=== PATIENT | female | born 1990 | race Caucasian/White ===

== ENCOUNTER 2016-08-08 22:50 | Emergency (ER) | payer OTHER ==
--- NOTE | 2016-08-08 23:27 | ED ---
Female Urogenital HPI - General Chief complaint: Vaginal Bleeding Stated complaint: /bleeding Time Seen by Provider: 08/08/16 23:12 Source: patient Mode of arrival: ambulatory Limitations: no limitations - History of Present Illness Initial comments: Patient is a 26-year-old woman who presents to be evaluated for vaginal bleeding that started approximately an hour ago. She is also having low back and pelvic cramping that she states feels "like when I'm having my period." The patient does state that her menstrual cycle is proximally a week to 10 days late. She took a home test on Wednesday and it was positive. Complaint: vaginal bleeding Onset/Timin -: hour(s) Location: suprapubic Radiation: other (Low back) Severity: mild Quality: cramping Consistency: constant Improves with: none Worsens with: none Last Menstrual Period: 06/27/16 Patient : Yes (Positive home test.) - Related Data Home Medications Medication Instructions Recorded Confirmed No Known Home Medications [No 11/12/14 08/08/16 Known Home Medications] Allergies Allergy/AdvReac Type Severity Reaction Status Date / Time No Known Allergies Allergy Verified 08/08/16 23:15 Review of Systems ROS Statement: Those systems with pertinent positive or pertinent negative responses have been documented in the HPI. ROS Other: All systems not noted in ROS Statement are negative. Constitutional: Denies: fever, chills Respiratory: Denies: cough, dyspnea Cardiovascular: Denies: chest pain, palpitations, syncope Gastrointestinal: Reports: as per HPI, abdominal pain. Denies: vomiting, diarrhea Genitourinary: Reports: abnormal menses. Denies: dysuria, hematuria, discharge , dyspareunia Musculoskeletal: Reports: as per HPI, back pain Skin: Denies: rash Neurological: Denies: headache, weakness, numbness Past Medical History Past Medical History: No Reported History History of Any Multi-Drug Resistant Organisms: None Reported Past Surgical History: Section Past Anesthesia/Blood Transfusion Reactions: Postoperative Nausea & Vomiting ( PONV) Past Psychological History: Anxiety Smoking Status: Current every day smoker Past Alcohol Use History: Occasional Past Drug Use History: None Reported - Past Family History Father History Unknown: Yes Mother Family Medical History: Cancer Additional Family Medical History / Comment(s): Cervical cancer General Exam Limitations: no limitations General appearance: alert, in no apparent distress Head exam: Present: atraumatic, normocephalic Eye exam: Present: normal appearance. Absent: scleral icterus, conjunctival injection ENT exam: Present: normal oropharynx Neck exam: Present: normal inspection Respiratory exam: Present: normal lung sounds bilaterally. Absent: respiratory distress, wheezes, rales, rhonchi, stridor Cardiovascular Exam: Present: regular rate, normal rhythm, normal heart sounds. Absent: systolic murmur, diastolic murmur, rubs, gallop GI/Abdominal exam: Present: soft. Absent: distended, tenderness, guarding, rebound, rigid, mass, hernia Extremities exam: Present: normal inspection, normal capillary refill. Absent: pedal edema, calf tenderness Back exam: Present: normal inspection. Absent: CVA tenderness (R), CVA tenderness (L) Neurological exam: Present: alert Skin exam: Present: warm, dry, intact, normal color, other (Multiple tattoos). Absent: rash Course Vital Signs 08/08/16 23:08 Temperature 98.2 F Pulse Rate 84 Respiratory 16 Rate Blood Pressure 116/78 O2 Sat by Pulse 98 Oximetry Medical Decision Making - Lab Data Lab Results 08/08/16 08/08/16 08/08/16 Range/Units 23:45 23:45 23:45 HCG, Quant mIU/mL Urine Color Yellow Urine Appearance Clear (Clear) Urine pH 6.5 (5.0-8.0) Ur Specific [place] 1.010 (1.001-1.035) Urine Protein Negative (Negative) Urine Glucose (UA) Negative (Negative) Urine Ketones Negative (Negative) Urine Blood Trace H (Negative) Urine Nitrite Negative (Negative) Urine Bilirubin Negative (Negative) Urine Urobilinogen <2.0 (<2.0) mg/dL Ur Leukocyte Esterase Negative (Negative) Urine RBC <1 (0-5) /hpf Urine WBC 1 (0-5) /hpf Ur Squamous Epith Cells 1 (0-4) /hpf Urine Mucus Rare H (None) /hpf Urine HCG, Qual Detected (Not Detectd) Blood Type O Negative Blood Type Recheck No Antibody Screen NEGATIVE 08/08/16 Range/Units 23:45 HCG, Quant 27.3 mIU/mL Urine Color Urine Appearance (Clear) Urine pH (5.0-8.0) Ur Specific [place] (1.001-1.035) Urine Protein (Negative) Urine Glucose (UA) (Negative) Urine Ketones (Negative) Urine Blood (Negative) Urine Nitrite (Negative) Urine Bilirubin (Negative) Urine Urobilinogen (<2.0) mg/dL Ur Leukocyte Esterase (Negative) Urine RBC (0-5) /hpf Urine WBC (0-5) /hpf Ur Squamous Epith Cells (0-4) /hpf Urine Mucus (None) /hpf Urine HCG, Qual (Not Detectd) Blood Type Blood Type Recheck Antibody Screen Disposition Clinical Impression: Rh negative status during , Threatened , Vaginal bleeding Disposition: HOME SELF-CARE Condition: Good Instructions: Threatened Miscarriage (ED) Referrals: None,Stated [Primary Care Provider] - 1-2 days Soco Fortune DO [Doctor of Osteopathic Medicine] - 1-2 days
[2016-08-09 00:13] LABS: Appearance,Urine Clear (Clear); Bilirubin,Urine Negative (Negative); Glucose,Urine (UA) Negative (Negative); Ketones,Urine Negative (Negative); Leukocyte Esterase,Urine Negative (Negative); Mucus,Urine Rare /hpf; Nitrite,Urine Negative (Negative); PH, Urine 6.5 (5.0-8.0); Particle Count 1213; Protein,Urine Negative (Negative); RBC,Urine <1 /hpf (0-5); Squamous Epithelial Cell,Urine 1 /hpf (0-4); UA Billing (MACRO vs. MICRO) MICRO; Urobilinogen,Urine <2.0 mg/dL (<2.0); WBC,Urine 1 /hpf (0-5)
[2016-08-09] MEDS ORDERED: Rhogam IMMUNE GLOBULIN 1,500 UNIT/1 ML IM ONE (01:21)
[2016-08-09 02:35] VITALS: BP 122/66; PULSE 78; RESP 18; TEMP 98.1
== END 2016-08-09 02:35 | disposition home or self-care (01) ==
LOC: EC 22:50
DX: O20.0 Threatened abortion (principal); Z3A.01 Less than 8 weeks gestation of pregnancy; Z67.91 Unspecified blood type, Rh negative; F17.200 Nicotine dependence, unspecified, uncomplicated
CPT/HCPCS: 36415; 86900; 86901; 86850; 81001; 81025; 84702; 99284; 96372; J2791

== ENCOUNTER → 2016-08-11 | Outpatient (CLI) | payer OTHER | LOC: LABWHC1 12:04 | PROVIDERS: ATTEND Obstetrics & Gynecology | DX: O02.1 Missed abortion (principal); Z3A.00 Weeks of gestation of pregnancy not specified | CPT/HCPCS: 36415; 84702 ==

== ENCOUNTER → 2016-08-13 | Outpatient (CLI) | payer OTHER | END | disposition home or self-care (01) | LOC: LABWHC1 10:20 | PROVIDERS: ATTEND Obstetrics & Gynecology | DX: O20.0 Threatened abortion (principal); Z3A.00 Weeks of gestation of pregnancy not specified | CPT/HCPCS: 36415; 84702 ==

== ENCOUNTER → 2016-08-15 | Outpatient (CLI) | payer OTHER | END | disposition home or self-care (01) | LOC: LABWHC1 08:47 | PROVIDERS: ATTEND Obstetrics & Gynecology | DX: O20.0 Threatened abortion (principal); Z3A.00 Weeks of gestation of pregnancy not specified | CPT/HCPCS: 36415; 84702 ==

== ENCOUNTER → 2016-08-24 | Outpatient (CLI) | payer OTHER | END | disposition home or self-care (01) | LOC: LABWHC1 10:09 | PROVIDERS: ATTEND Obstetrics & Gynecology | DX: O03.9 Complete or unspecified spontaneous abortion without complication (principal) | CPT/HCPCS: 36415; 84702 ==

== ENCOUNTER 2016-08-31 18:44 | Emergency (ER) | payer OTHER ==
[2016-08-31 19:04] VITALS: RESP 18
[2016-08-31] MEDS ORDERED: MORPHINE SULFATE 4 MG/ML SYRINGE IVP STA (19:31)
[2016-08-31] MEDS ORDERED: SODIUM CHLORIDE 0.9% 500 ML IV ONE (19:32)
--- NOTE | 2016-08-31 19:44 | ED ---
Abdominal Pain HPI - General Chief Complaint: Abdominal Pain Stated Complaint: poss miscarrage Time Seen by Provider: 08/31/16 19:22 Source: patient, RN notes reviewed Mode of arrival: ambulatory Limitations: no limitations - History of Present Illness Initial Comments: This a 26-year-old female presents emergency Department chief complaint abdominal pain. Patient states she is at the gym working out when she had pain in her abdomen after doing some leg presses. Patient states it's in her right mid abdomen and the lower aspect. Patient states that she recently was told she was having a miscarriage. She states that she seen Dr. Arenas and she's having trended down of her hCGs. Patient did receive program. Patient is A3. Patient states that she has not had any bleeding since 08/24/2016 patient states her pain is increased with movement. Denies any dysuria, hematuria, nausea, vomiting diarrhea constipation. Patient states she had a bowel movement prior to urine states did help some. - Related Data Home Medications Medication Instructions Recorded Confirmed No Known Home Medications [No 11/12/14 08/31/16 Known Home Medications] Allergies Allergy/AdvReac Type Severity Reaction Status Date / Time No Known Allergies Allergy Verified 08/31/16 19:26 Review of Systems ROS Statement: Those systems with pertinent positive or pertinent negative responses have been documented in the HPI. ROS Other: All systems not noted in ROS Statement are negative. Past Medical History Past Medical History: No Reported History History of Any Multi-Drug Resistant Organisms: None Reported Past Surgical History: Section Past Anesthesia/Blood Transfusion Reactions: Postoperative Nausea & Vomiting ( PONV) Past Psychological History: Anxiety Smoking Status: Current every day smoker Past Alcohol Use History: Occasional Past Drug Use History: None Reported - Past Family History Father History Unknown: Yes Mother Family Medical History: Cancer Additional Family Medical History / Comment(s): Cervical cancer General Exam Limitations: no limitations General appearance: alert, in no apparent distress Neck exam: Present: normal inspection, full ROM. Absent: tenderness, meningismus, lymphadenopathy Respiratory exam: Present: normal lung sounds bilaterally. Absent: respiratory distress, wheezes, rales, rhonchi, stridor Cardiovascular Exam: Present: regular rate, normal rhythm, normal heart sounds. Absent: systolic murmur, diastolic murmur, rubs, gallop, clicks GI/Abdominal exam: Present: soft, tenderness (Moderate suprapubic tenderness), normal bowel sounds. Absent: distended, guarding, rebound, rigid Back exam: Absent: CVA tenderness (R), CVA tenderness (L) Neurological exam: Present: alert, oriented X3, CN II-XII intact Skin exam: Present: warm, dry, intact, normal color. Absent: rash Course Vital Signs 08/31/16 08/31/16 18:59 20:37 Temperature 97.0 F L 98.2 F Pulse Rate 104 H 99 Respiratory 18 18 Rate Blood Pressure 107/69 107/71 O2 Sat by Pulse 99 96 Oximetry Medical Decision Making - Medical Decision Making 26-year-old female presented for abdominal pain after working all. Patient's pain is improved at this time. Patient's pain is only worse with movement. Patient also has some abdominal wall strain. Patient is advised to rest, take [id number] acetaminophen or ibuprofen return parameters were discussed. - Lab Data Result diagrams: 08/31/16 19:40 08/31/16 19:40 Lab Results 08/31/16 08/31/16 08/31/16 Range/Units 19:40 19:40 19:40 WBC 11.0 H (3.8-10.6) k/uL RBC 5.13 (3.80-5.40) m/uL Hgb 14.9 (11.4-16.0) gm/dL Hct 45.6 (34.0-46.0) % MCV 88.9 (80.0-100.0) fL MCH 29.1 (25.0-35.0) pg MCHC 32.7 (31.0-37.0) g/dL RDW 12.7 (11.5-15.5) % Plt Count 236 (150-450) k/uL Neutrophils % 75 % Lymphocytes % 19 % Monocytes % 3 % Eosinophils % 1 % Basophils % 0 % Neutrophils # 8.3 H (1.3-7.7) k/uL Lymphocytes # 2.0 (1.0-4.8) k/uL Monocytes # 0.4 (0-1.0) k/uL Eosinophils # 0.1 (0-0.7) k/uL Basophils # 0.0 (0-0.2) k/uL Sodium 140 (137-145) mmol/L Potassium 4.3 (3.5-5.1) mmol/L Chloride 107 (98-107) mmol/L Carbon Dioxide 23 (22-30) mmol/L Anion Gap 10 mmol/L BUN 7 (7-17) mg/dL Creatinine 0.59 (0.52-1.04) mg/dL Est GFR (MDRD) Af Amer >60 (>60 ml/min/1.73 sqM) Est GFR (MDRD) Non-Af >60 (>60 ml/min/1.73 sqM) Glucose 94 (74-99) mg/dL Calcium 9.6 (8.4-10.2) mg/dL Total Bilirubin 0.6 (0.2-1.3) mg/dL AST 18 (14-36) U/L ALT 29 (9-52) U/L Alkaline Phosphatase 75 (38-126) U/L Total Protein 7.5 (6.3-8.2) g/dL Albumin 4.5 (3.5-5.0) g/dL Lipase 76 (23-300) U/L Urine Color Yellow Urine Appearance Clear (Clear) Urine pH 6.0 (5.0-8.0) Ur Specific [place] 1.015 (1.001-1.035) Urine Protein Negative (Negative) Urine Glucose (UA) Negative (Negative) Urine Ketones Negative (Negative) Urine Blood Negative (Negative) Urine Nitrite Negative (Negative) Urine Bilirubin Negative (Negative) Urine Urobilinogen <2.0 (<2.0) mg/dL Ur Leukocyte Esterase Negative (Negative) Disposition Clinical Impression: Abdominal wall strain Disposition: HOME SELF-CARE Condition: Stable Instructions: Muscle Strain (ED) Additional Instructions: Please return to the Emergency Department if symptoms worsen or any other concerns. Referrals: Yasmani Arenas MD [Primary Care Provider] - 1-2 days Time of Disposition: 20:41
[2016-08-31] MEDS: ONDANSETRON 4 MG/2 ML VIAL IVP STA ×2 (20:09→20:11)
[2016-08-31 20:16] LABS: Basophils % (A) 0 %; CHCM 33.8; Eosinophils # (A) 0.1 k/uL (0-0.7); Eosinophils % (A) 1 %; HCT 45.6 % (34.0-46.0); HDW 2.35; HGB 14.9 gm/dL (11.4-16.0); Luc # (Auto) 0.16; Luc % (Auto) 2; Lymphocytes % (A) 19 %; MCH 29.1 pg (25.0-35.0); MCHC 32.7 g/dL (31.0-37.0); MCV 88.9 fL (80.0-100.0); Mean Platelet Volume 6.5; Monocytes # (A) 0.4 k/uL (0-1.0); Monocytes % (A) 3 %; Neutrophils # (A) 8.3 k/uL (1.3-7.7); Neutrophils % (A) 75 %; RBC 5.13 m/uL (3.80-5.40); RDW 12.7 % (11.5-15.5); WBC (Perox) 10.18
[2016-08-31 20:23] LABS: ALT 29 U/L (9-52); AST 18 U/L (14-36); Alkaline Phosphatase 75 U/L (38-126); Anion Gap 10 mmol/L; Blood Urea Nitrogen 7 mg/dL (7-17); Calcium 9.6 mg/dL (8.4-10.2); Carbon Dioxide 23 mmol/L (22-30); Chloride 107 mmol/L (98-107); Glucose 94 mg/dL (74-99); Non-African American GFR(MDRD) >60 (>60 ml/min/1.73 sqM); Potassium 4.3 mmol/L (3.5-5.1); Sodium 140 mmol/L (137-145); Total Bilirubin 0.6 mg/dL (0.2-1.3); Total Protein 7.5 g/dL (6.3-8.2)
[2016-08-31 20:34] LABS: Appearance,Urine Clear (Clear); Bilirubin,Urine Negative (Negative); Glucose,Urine (UA) Negative (Negative); Ketones,Urine Negative (Negative); Leukocyte Esterase,Urine Negative (Negative); Nitrite,Urine Negative (Negative); Protein,Urine Negative (Negative); Specific Gravity,Urine 1.015 (1.001-1.035); UA Billing (MACRO vs. MICRO) CHEM; Urobilinogen,Urine <2.0 mg/dL (<2.0)
[2016-08-31 20:39] VITALS: BP 107/71; PULSE 99; TEMP 98.2
[2016-08-31 20:39] LABS: HCG,Quantitative Serum <2.4 mIU/mL
== END 2016-08-31 20:51 | disposition home or self-care (01) ==
LOC: EC 18:44
DX: S39.011A Strain of muscle, fascia and tendon of abdomen, initial encounter (principal); F17.200 Nicotine dependence, unspecified, uncomplicated; X50.9XXA Other and unspecified overexertion or strenuous movements or postures, initial encounter; Y92.39 Other specified sports and athletic area as the place of occurrence of the external cause
CPT/HCPCS: 36415; 80053; 81003; 83690; 84702; 85025; 99284

== ENCOUNTER 2018-05-13 07:23 | Emergency (ER) | payer OTHER ==
[2018-05-13 07:30] VITALS: BP 121/80; PULSE 108; RESP 18; TEMP 97.4
--- NOTE | 2018-05-13 08:54 | ED ---
Fall HPI - General Chief Complaint: Fall Stated Complaint: Fall-11wks Time Seen by Provider: 05/13/18 08:07 Source: patient Mode of arrival: ambulatory Limitations: no limitations - History of Present Illness Initial Comments: 27 year old female presents emergency from for slip and fall. Patient states she was walking back into her house and fell onto her side. Patient struck her left elbow, buttocks region. Patient states that she is sore but has no concerns. Patient presents she is denies any vaginal bleeding or vaginal discharge. Patient mother is concerned about baby at this time. Patient denies any trauma to her abdomen. Patient's MATHEMATICS TECHNICIAN is Dr. Dejesus. Denies head injury no loss conscious. - Related Data Home Medications Medication Instructions Recorded Confirmed No Known Home Medications 11/12/14 05/13/18 Allergies Allergy/AdvReac Type Severity Reaction Status Date / Time No Known Allergies Allergy Verified 05/13/18 09:01 Review of Systems ROS Statement: Those systems with pertinent positive or pertinent negative responses have been documented in the HPI. ROS Other: All systems not noted in ROS Statement are negative. Past Medical History Past Medical History: No Reported History History of Any Multi-Drug Resistant Organisms: None Reported Past Surgical History: Section Past Anesthesia/Blood Transfusion Reactions: Postoperative Nausea & Vomiting ( PONV) Past Psychological History: Anxiety Smoking Status: Current every day smoker Past Alcohol Use History: Occasional Past Drug Use History: None Reported - Past Family History Father History Unknown: Yes Mother Family Medical History: Cancer Additional Family Medical History / Comment(s): Cervical cancer General Exam Limitations: no limitations General appearance: alert, in no apparent distress Head exam: Present: atraumatic, normocephalic, normal inspection Eye exam: Present: normal appearance, PERRL, EOMI. Absent: scleral icterus, conjunctival injection, periorbital swelling Respiratory exam: Present: normal lung sounds bilaterally. Absent: respiratory distress, wheezes, rales, rhonchi, stridor Cardiovascular Exam: Present: regular rate, normal rhythm, normal heart sounds. Absent: systolic murmur, diastolic murmur, rubs, gallop, clicks GI/Abdominal exam: Present: soft, normal bowel sounds. Absent: distended, tenderness, guarding, rebound, rigid Extremities exam: Present: other (Left arm full range of motion minimal tenderness, no pain with pronation supination neurovascular intact remaining extremity exam within normal limits) Back exam: Present: full ROM. Absent: tenderness, CVA tenderness (R), CVA tenderness (L), paraspinal tenderness, vertebral tenderness Neurological exam: Present: alert, oriented X3, CN II-XII intact, reflexes normal. Absent: motor sensory deficit Skin exam: Present: warm, dry, intact, normal color. Absent: rash Course Vital Signs 05/13/18 07:26 Temperature 97.4 F L Pulse Rate 108 H Respiratory 18 Rate Blood Pressure 121/80 O2 Sat by Pulse 100 Oximetry Medical Decision Making - Medical Decision Making 27 show female presented for slip and fall. Patient had slight concerns of her confirmed on ultrasound normal bilaterally feel 11 weeks 6 days with heart rate 160 no other injuries noted. Patient be discharged. Disposition Clinical Impression: Fall, , Left elbow contusion Disposition: HOME SELF-CARE Condition: Stable Instructions (If sedation given, give patient instructions): Contusion in Adults (ED) Additional Instructions: Please return to the Emergency Department if symptoms worsen or any other concerns. Is patient prescribed a controlled substance at d/c from ED?: No Referrals: None,Stated [Primary Care Provider] - 1-2 days Time of Disposition: 09:18
--- NOTE | 2018-05-13 08:56 | US ---
EXAMINATION TYPE: US OB limited DATE OF EXAM: 05/13/2018 COMPARISON: NONE CLINICAL HISTORY: fall, . Patient fell down stairs today, patient states no pelvic pain or b leeding, 8, para 4, miscarriage 2, 1, limited OB ultrasound for heart tones. EXAM PERFORMED: Transabdominal (TA) GESTATIONAL AGE / DATING Physician Established: (11 weeks/6 days) EDC: 11/26/2018 SURVEY HEART RATE: 160 bpm RHYTHM: Normal Intrauterine fetus evaluated for heart rate only. IMPRESSION: Limited survey. Viable intrauterine .
== END 2018-05-13 09:36 | disposition home or self-care (01) ==
LOC: EC 07:23
DX: O9A.211 Injury, poisoning and certain other consequences of external causes complicating pregnancy, first trimester (principal); S50.02XA Contusion of left elbow, initial encounter; O99.331 Smoking (tobacco) complicating pregnancy, first trimester; F17.200 Nicotine dependence, unspecified, uncomplicated; Z3A.11 11 weeks gestation of pregnancy; W01.10XA Fall on same level from slipping, tripping and stumbling with subsequent striking against unspecified object, initial encounter; Y93.01 Activity, walking, marching and hiking; Y92.009 Unspecified place in unspecified non-institutional (private) residence as the place of occurrence of the external cause
CPT/HCPCS: 76815; 99283

== ENCOUNTER 2018-05-19 00:41 | Emergency (ER) | payer OTHER ==
[2018-05-19] MEDS ORDERED: SODIUM CHLORIDE 0.9% 1,000 ML IV ONE ×2 (00:52→03:16)
[2018-05-19] MEDS ORDERED: ACETAMINOPHEN TAB 325 MG TAB PO STA (00:53)
[2018-05-19] MEDS ORDERED: METOCLOPRAMIDE 5 MG/ML 2 ML VIAL IVP STA (00:53)
--- NOTE | 2018-05-19 01:31 | ED ---
General Adult HPI - General Source: patient Mode of arrival: ambulatory Limitations: no limitations <Giulia Patel - Last Filed: 05/19/18 03:53> <Parvin Clay - Last Filed: 05/19/18 04:12> - General Chief complaint: Nausea/Vomiting/Diarrhea Stated complaint: Vomiting, 12 wks preg Time Seen by Provider: 05/19/18 00:42 - History of Present Illness Initial comments: 27 year old female with no past medical history present today for chief complaint of vomiting. Patient states she feels as though she has a flu, she states she began feeling warm and having chills yesterday, she states this morning she began vomiting and continued to have what felt like a fever and chills. She denies cough or diarrhea. Patient denies any vaginal bleeding or cramping. Patient states that she had fallen down the stairs about a week ago and was evaluated [facility] and still has mild residual "soreness" of the abdomen, denies any increasing pain. Remainder of review systems is negative patient denies any chest pain, dyspnea, dyspnea on exertion, urgency. She, dysuria, vaginal bleeding or vaginal discharge. She does state she is currently on azithromycin for treatment of STI. She was seen by her GRADUATE STUDENT Dr. Dejesus about a week ago. Upon arrival patient is febrile, repeat temperature is 100.7F orally. HR elevated. (Giulia Patel) - Related Data Home Medications Medication Instructions Recorded Confirmed No Known Home Medications 11/12/14 05/13/18 Allergies Allergy/AdvReac Type Severity Reaction Status Date / Time No Known Allergies Allergy Verified 05/19/18 00:47 Review of Systems ROS Other: All systems not noted in ROS Statement are negative. <Giulia Patel - Last Filed: 05/19/18 03:53> ROS Other: All systems not noted in ROS Statement are negative. <Parvin Clay - Last Filed: 05/19/18 04:12> ROS Statement: Those systems with pertinent positive or pertinent negative responses have been documented in the HPI. Past Medical History Past Medical History: No Reported History History of Any Multi-Drug Resistant Organisms: None Reported Past Surgical History: Section Past Anesthesia/Blood Transfusion Reactions: Postoperative Nausea & Vomiting ( PONV) Past Psychological History: Anxiety Smoking Status: Current every day smoker Past Alcohol Use History: Occasional Past Drug Use History: None Reported - Past Family History Father History Unknown: Yes Mother Family Medical History: Cancer Additional Family Medical History / Comment(s): Cervical cancer <Giulia Patel - Last Filed: 05/19/18 03:53> General Exam Limitations: no limitations <Giulia Patel - Last Filed: 05/19/18 03:53> <Parvin Clay P - Last Filed: 05/19/18 04:12> - General Exam Comments Initial Comments: General: The patient is awake and alert, in no distress, and does not appear acutely ill. Eye: +3 mm pupils are equal, round and reactive to light, extra-ocular movements are intact. No nystagmus. There is normal conjunctiva bilaterally. No signs of icterus. Ears, nose, mouth and throat: There are moist mucous membranes and no oral lesions. Oropharynx mildly erythematous. No tonsillar enlargement x-ray to lesions. Uvula midline. Tympanic membranes are within normal limits bilaterally. Neck: The neck is supple, there is no tenderness or JVD. Cardiovascular: There is a regular rate and rhythm. No murmur, rub or gallop is appreciated. Respiratory: Lungs are clear to auscultation, respirations are non-labored, breath sounds are equal. No wheezes, stridor, rales, or rhonchi. Gastrointestinal: Soft, non-distended, non-tender abdomen without masses or organomegaly noted. There is no rebound or guarding present. No CVA tenderness. Bowel sounds are unremarkable. Musculoskeletal: Normal ROM, no tenderness. Strength 5/5. Sensation intact. Radial pulses equal bilaterally 2+. Neurological: A&O x 3. CN II-XII intact, There are no obvious motor or sensory deficits. Coordination appears grossly intact. Speech is normal. Skin: Skin is warm and dry and no rashes or lesions are noted. [place] instant recoil. Psychiatric: Cooperative, appropriate mood & affect, normal judgment. (Giulia Patel) Vital Signs 05/19/18 05/19/18 00:43 03:30 Temperature 99.7 F H 98.8 F Pulse Rate 138 H 78 Respiratory 18 16 Rate Blood Pressure 111/71 98/47 O2 Sat by Pulse 98 100 Oximetry Medical Decision Making - Lab Data Result diagrams: 05/19/18 01:08 05/19/18 01:08 <Giulia Patel - Last Filed: 05/19/18 03:53> - Lab Data Result diagrams: 05/19/18 01:08 05/19/18 01:08 <Parvin Clay - Last Filed: 05/19/18 04:12> - Medical Decision Making 27yo with acute vomiting. Pt given 1L IVF. Pt given reglan for nausea and tylenol for fever. Labs within acceptable limits. Pt appears well, pt does not appear dry on exam. US revealed viable IUP, pt denies any vaginal bleeding or significant abdominal pain. Pt states she feels like she has the "stomach flu". At this time I feel pt has most likely a gastroenteritis. Abdominal exam benign , no findings concerning for acute abdomen. Pt will be discharged with outpatient follow-up, and return parameters for inability to tolerate by mouth intake, worsening symptoms, or any other concerns. Pt verbalized understanding. Pt discharged in stable condition appearing well, I did consult my attending provider throughout course. Pt has trace leukocytesterase in urine, is currently being treated with ABX by OBGYN. (Giulia Patel) I was available for consultation in the emergency department. The history and physical exam were done by the midlevel provider. I was consulted for this patient's care. I reviewed the case with the midlevel provider and based on their presentation of the patient, I agree with the assessment, medical decision making and plan of care as documented. (Parvin Clay) - Lab Data Lab Results 05/19/18 05/19/18 05/19/18 Range/Units 01:08 01:08 03:20 WBC 11.1 H (3.8-10.6) k/uL RBC 4.32 (3.80-5.40) m/uL Hgb 12.5 (11.4-16.0) gm/dL Hct 36.6 (34.0-46.0) % MCV 84.8 (80.0-100.0) fL MCH 29.0 (25.0-35.0) pg MCHC 34.2 (31.0-37.0) g/dL RDW 12.7 (11.5-15.5) % Plt Count 194 (150-450) k/uL Neutrophils % 93 % Lymphocytes % 5 % Monocytes % 2 % Eosinophils % 0 % Basophils % 0 % Neutrophils # 10.3 H (1.3-7.7) k/uL Lymphocytes # 0.5 L (1.0-4.8) k/uL Monocytes # 0.2 (0-1.0) k/uL Eosinophils # 0.0 (0-0.7) k/uL Basophils # 0.0 (0-0.2) k/uL Sodium 133 L (137-145) mmol/L Potassium 3.6 (3.5-5.1) mmol/L Chloride 103 (98-107) mmol/L Carbon Dioxide 21 L (22-30) mmol/L Anion Gap 9 mmol/L BUN 6 L (7-17) mg/dL Creatinine 0.42 L (0.52-1.04) mg/dL Est GFR (CKD-EPI)AfAm >90 (>60 ml/min/1.73 sqM) Est GFR (CKD-EPI)NonAf >90 (>60 ml/min/1.73 sqM) Glucose 111 H (74-99) mg/dL Calcium 9.6 (8.4-10.2) mg/dL Total Bilirubin 0.8 (0.2-1.3) mg/dL AST 18 (14-36) U/L ALT 24 (9-52) U/L Alkaline Phosphatase 97 (38-126) U/L Total Protein 6.6 (6.3-8.2) g/dL Albumin 3.7 (3.5-5.0) g/dL Urine Color Yellow Urine Appearance Clear (Clear) Urine pH 6.5 (5.0-8.0) Ur Specific [place] 1.006 (1.001-1.035) Urine Protein Negative (Negative) Urine Glucose (UA) Negative (Negative) Urine Ketones Trace H (Negative) Urine Blood Negative (Negative) Urine Nitrite Negative (Negative) Urine Bilirubin Negative (Negative) Urine Urobilinogen <2.0 (<2.0) mg/dL Ur Leukocyte Esterase Trace H (Negative) Urine RBC <1 (0-5) /hpf Urine WBC 13 H (0-5) /hpf Ur Squamous Epith Cells 1 (0-4) /hpf Urine Bacteria Occasional H (None) /hpf Urine Mucus Rare H (None) /hpf Disposition Is patient prescribed a controlled substance at d/c from ED?: No Time of Disposition: 03:48 <Giulia Patel - Last Filed: 05/19/18 03:53> <Parvin Clay P - Last Filed: 05/19/18 04:12> Clinical Impression: Acute vomiting Disposition: HOME SELF-CARE Condition: Good Instructions (If sedation given, give patient instructions): Acute Nausea and Vomiting (ED) Additional Instructions: Please follow-up with family doctor in the next 2 days.. Please return to emergency room if the symptoms increase or worsen or for any other concerns, including uncontrolled vomiting, abdominal pain, vaginal bleeding. Referrals: None,Stated [Primary Care Provider] - 1-2 days Yasmani Arenas MD [STAFF PHYSICIAN] - 1-2 days
--- NOTE | 2018-05-19 01:48 | US ---
EXAM: US Ob 1St Trimester CLINICAL HISTORY: abdominal pain in TECHNIQUE: Real-time ultrasound of the ob 1st trimester with image documentation. COMPARISON: No relevant prior studies available. FINDINGS: Single live IUP. EGA by CRL 13 weeks 2 days. heart rate 176 BPM. Maternal left ovary unremarkable in appearance. Right maternal ovary is obscured. Remainder unremarkable. IMPRESSION: Single live IUP with EGA of 13 weeks 2 days by CRL. Nonvisualized maternal right ovary.
[2018-05-19 01:49] LABS: Basophils % (A) 0 %; Eosinophils % (A) 0 %; HCT 36.6 % (34.0-46.0); HGB 12.5 gm/dL (11.4-16.0); Lymphocytes # (A) 0.5 k/uL (1.0-4.8); Lymphocytes % (A) 5 %; MCHC 34.2 g/dL (31.0-37.0); MCV 84.8 fL (80.0-100.0); Mean Platelet Volume 6.6; Monocytes # (A) 0.2 k/uL (0-1.0); Monocytes % (A) 2 %; Neutrophils # (A) 10.3 k/uL (1.3-7.7); Neutrophils % (A) 93 %; Platelet Count 194 k/uL (150-450); RBC 4.32 m/uL (3.80-5.40); RDW 12.7 % (11.5-15.5); WBC 11.1 k/uL (3.8-10.6)
[2018-05-19 01:54] LABS: ALT 24 U/L (9-52); AST 18 U/L (14-36); Albumin 3.7 g/dL (3.5-5.0); Alkaline Phosphatase 97 U/L (38-126); Anion Gap 9 mmol/L; Blood Urea Nitrogen 6 mg/dL (7-17); Calcium 9.6 mg/dL (8.4-10.2); Carbon Dioxide 21 mmol/L (22-30); Chloride 103 mmol/L (98-107); Glucose 111 mg/dL (74-99); Potassium 3.6 mmol/L (3.5-5.1); Sodium 133 mmol/L (137-145); Total Bilirubin 0.8 mg/dL (0.2-1.3); Total Protein 6.6 g/dL (6.3-8.2)
[2018-05-19 03:31] VITALS: BP 98/47; PULSE 78; RESP 16; TEMP 98.8
[2018-05-19 03:50] LABS: Appearance,Urine Clear (Clear); Bacteria,Urine Occasional /hpf; Bilirubin,Urine Negative (Negative); Blood,Urine Negative (Negative); Color,Urine Yellow; Glucose,Urine (UA) Negative (Negative); Ketones,Urine Trace (Negative); Leukocyte Esterase,Urine Trace (Negative); Mucus,Urine Rare /hpf; Nitrite,Urine Negative (Negative); PH, Urine 6.5 (5.0-8.0); Protein,Urine Negative (Negative); RBC,Urine <1 /hpf (0-5); Specific Gravity,Urine 1.006 (1.001-1.035); Squamous Epithelial Cell,Urine 1 /hpf (0-4); Urobilinogen,Urine <2.0 mg/dL (<2.0)
== END 2018-05-19 04:05 | disposition home or self-care (01) ==
LOC: EC 00:41
DX: O21.9 Vomiting of pregnancy, unspecified (principal); O99.331 Smoking (tobacco) complicating pregnancy, first trimester; F17.200 Nicotine dependence, unspecified, uncomplicated; Z3A.13 13 weeks gestation of pregnancy; Z53.8 Procedure and treatment not carried out for other reasons
CPT/HCPCS: 36415; 80053; 85025; 81001; 87086; 87502; 76801; 99284; 96374; 96361; J2765

== ENCOUNTER 2018-06-22 11:13 | Emergency (ER) | payer OTHER ==
[2018-06-22 11:53] LABS: Basophils % (A) 0 %; Eosinophils # (A) 0.1 k/uL (0-0.7); Eosinophils % (A) 1 %; HCT 38.3 % (34.0-46.0); HGB 13.1 gm/dL (11.4-16.0); Lymphocytes # (A) 1.5 k/uL (1.0-4.8); Lymphocytes % (A) 13 %; MCHC 34.2 g/dL (31.0-37.0); MCV 87.6 fL (80.0-100.0); Mean Platelet Volume 6.3; Monocytes # (A) 0.3 k/uL (0-1.0); Monocytes % (A) 3 %; Neutrophils # (A) 9.5 k/uL (1.3-7.7); Neutrophils % (A) 82 %; Platelet Count 248 k/uL (150-450); RBC 4.38 m/uL (3.80-5.40); RDW 13.1 % (11.5-15.5); WBC 11.5 k/uL (3.8-10.6)
[2018-06-22 11:59] LABS: INR 0.9 (<1.2); Prothrombin Time 9.7 sec (9.0-12.0)
[2018-06-22 12:07] LABS: Anion Gap 5 mmol/L; Blood Urea Nitrogen 6 mg/dL (7-17); Calcium 9.5 mg/dL (8.4-10.2); Carbon Dioxide 24 mmol/L (22-30); Chloride 107 mmol/L (98-107); Glucose 95 mg/dL (74-99); Potassium 4.2 mmol/L (3.5-5.1); Sodium 136 mmol/L (137-145)
--- NOTE | 2018-06-22 12:40 | ED ---
General Adult HPI - General Chief complaint: Abdominal Pain Stated complaint: 17wk preg, cramping Time Seen by Provider: 06/22/18 11:37 Source: patient, RN notes reviewed Mode of arrival: ambulatory Limitations: no limitations - History of Present Illness Initial comments: 27-year-old female presents to the emergency department for a chief complaint of pelvic cramping. Patient is 17 weeks . Patient is a female. She denies any vaginal bleeding. She states she has had cramping on and off for the past few days. She states it is sharp in nature. Patient denies dysuria. Patient denies fevers or chills. Patient also admits to nausea. denies vomiting. Patient has no other complaints at this time including shortness of breath, chest pain, or vomiting, headache, or visual changes. - Related Data Home Medications Medication Instructions Recorded Confirmed Pedi Multivit No.25/Folic Acid 300 mcg PO DAILY 06/22/18 06/22/18 [Flintstones Multivit Chew Tab] Allergies Allergy/AdvReac Type Severity Reaction Status Date / Time No Known Allergies Allergy Verified 06/22/18 11:40 Review of Systems ROS Statement: Those systems with pertinent positive or pertinent negative responses have been documented in the HPI. ROS Other: All systems not noted in ROS Statement are negative. Past Medical History Past Medical History: No Reported History History of Any Multi-Drug Resistant Organisms: None Reported Past Surgical History: Section Past Anesthesia/Blood Transfusion Reactions: Postoperative Nausea & Vomiting (PONV) Past Psychological History: Anxiety Smoking Status: Current every day smoker Past Alcohol Use History: Occasional Past Drug Use History: None Reported - Past Family History Father History Unknown: Yes Mother Family Medical History: Cancer Additional Family Medical History / Comment(s): Cervical cancer General Exam Limitations: no limitations General appearance: alert, in no apparent distress Head exam: Present: atraumatic, normocephalic, normal inspection Eye exam: Present: normal appearance, PERRL, EOMI. Absent: scleral icterus, conjunctival injection, periorbital swelling ENT exam: Present: normal exam, mucous membranes moist Neck exam: Present: normal inspection, full ROM. Absent: tenderness, meningismus, lymphadenopathy Respiratory exam: Present: normal lung sounds bilaterally. Absent: respiratory distress, wheezes, rales, rhonchi, stridor Cardiovascular Exam: Present: regular rate, normal rhythm, normal heart sounds. Absent: bradycardia, tachycardia, irregular rhythm GI/Abdominal exam: Present: soft, normal bowel sounds. Absent: distended, tenderness, guarding, rebound, rigid Neurological exam: Present: alert, oriented X3, CN II-XII intact Psychiatric exam: Present: normal affect, normal mood Course Vital Signs 06/22/18 11:21 Temperature 98.3 F Pulse Rate 112 H Respiratory 16 Rate Blood Pressure 106/70 O2 Sat by Pulse 100 Oximetry Medical Decision Making - Medical Decision Making 27 her old female presents to the emergency department with a chief complaint of pelvic cramping stating it is sharp in nature. Patient is 17 weeks . Denies any vaginal bleeding. No significant tenderness on exam. CBC unremarkable, white count of 11.5 likely reactive. CMP unremarkable. Urine is negative. Ultrasound does show myometrial contraction likely cause of patient's pain. Live intrauterine identified. At this time patient can be discharged home. Patient will follow-up with Dr. Dejesus. She is already an established patient. She will return here if she has any worsening symptoms. - Lab Data Result diagrams: 06/22/18 11:39 06/22/18 11:39 Lab Results 06/22/18 06/22/18 06/22/18 Range/Units 11:39 11:39 11:39 WBC 11.5 H (3.8-10.6) k/uL RBC 4.38 (3.80-5.40) m/uL Hgb 13.1 (11.4-16.0) gm/dL Hct 38.3 (34.0-46.0) % MCV 87.6 (80.0-100.0) fL MCH 30.0 (25.0-35.0) pg MCHC 34.2 (31.0-37.0) g/dL RDW 13.1 (11.5-15.5) % Plt Count 248 (150-450) k/uL Neutrophils % 82 % Lymphocytes % 13 % Monocytes % 3 % Eosinophils % 1 % Basophils % 0 % Neutrophils # 9.5 H (1.3-7.7) k/uL Lymphocytes # 1.5 (1.0-4.8) k/uL Monocytes # 0.3 (0-1.0) k/uL Eosinophils # 0.1 (0-0.7) k/uL Basophils # 0.0 (0-0.2) k/uL PT (9.0-12.0) sec INR (<1.2) Sodium 136 L (137-145) mmol/L Potassium 4.2 (3.5-5.1) mmol/L Chloride 107 (98-107) mmol/L Carbon Dioxide 24 (22-30) mmol/L Anion Gap 5 mmol/L BUN 6 L (7-17) mg/dL Creatinine 0.36 L (0.52-1.04) mg/dL Est GFR (CKD-EPI)AfAm >90 (>60 ml/min/1.73 sqM) Est GFR (CKD-EPI)NonAf >90 (>60 ml/min/1.73 sqM) Glucose 95 (74-99) mg/dL Calcium 9.5 (8.4-10.2) mg/dL Urine Color Urine Appearance (Clear) Urine pH (5.0-8.0) Ur Specific Baldwin (1.001-1.035) Urine Protein (Negative) Urine Glucose (UA) (Negative) Urine Ketones (Negative) Urine Blood (Negative) Urine Nitrite (Negative) Urine Bilirubin (Negative) Urine Urobilinogen (<2.0) mg/dL Ur Leukocyte Esterase (Negative) Urine HCG, Qual (Not Detectd) Blood Type O Negative Blood Type Recheck No Antibody Screen NEGATIVE Spec Expiration Date 06/25/2018 - 233806/22/18 06/22/18 06/22/18 Range/Units 11:39 11:47 11:47 WBC (3.8-10.6) k/uL RBC (3.80-5.40) m/uL Hgb (11.4-16.0) gm/dL Hct (34.0-46.0) % MCV (80.0-100.0) fL MCH (25.0-35.0) pg MCHC (31.0-37.0) g/dL RDW (11.5-15.5) % Plt Count (150-450) k/uL Neutrophils % % Lymphocytes % % Monocytes % % Eosinophils % % Basophils % % Neutrophils # (1.3-7.7) k/uL Lymphocytes # (1.0-4.8) k/uL Monocytes # (0-1.0) k/uL Eosinophils # (0-0.7) k/uL Basophils # (0-0.2) k/uL PT 9.7 (9.0-12.0) sec INR 0.9 (<1.2) Sodium (137-145) mmol/L Potassium (3.5-5.1) mmol/L Chloride (98-107) mmol/L Carbon Dioxide (22-30) mmol/L Anion Gap mmol/L BUN (7-17) mg/dL Creatinine (0.52-1.04) mg/dL Est GFR (CKD-EPI)AfAm (>60 ml/min/1.73 sqM) Est GFR (CKD-EPI)NonAf (>60 ml/min/1.73 sqM) Glucose (74-99) mg/dL Calcium (8.4-10.2) mg/dL Urine Color Yellow Urine Appearance Clear (Clear) Urine pH 7.0 (5.0-8.0) Ur Specific Baldwin 1.011 (1.001-1.035) Urine Protein Negative (Negative) Urine Glucose (UA) Negative (Negative) Urine Ketones Negative (Negative) Urine Blood Negative (Negative) Urine Nitrite Negative (Negative) Urine Bilirubin Negative (Negative) Urine Urobilinogen <2.0 (<2.0) mg/dL Ur Leukocyte Esterase Negative (Negative) Urine HCG, Qual Detected (Not Detectd) Blood Type Blood Type Recheck Antibody Screen Spec Expiration Date Disposition Clinical Impression: Abdominal pain affecting Disposition: HOME SELF-CARE Condition: Good Instructions (If sedation given, give patient instructions): Abdominal Pain in (ED) Additional Instructions: Please take Tylenol for pain. Please follow-up with Dr. Arenas. Please return here to the emergency department if you have any worsening symptoms or experience vaginal bleeding. Is patient prescribed a controlled substance at d/c from ED?: No Referrals: Yasmani Arenas MD [STAFF PHYSICIAN] - 1-2 days Time of Disposition: 13:39
[2018-06-22 12:44] LABS: Appearance,Urine Clear (Clear); Bilirubin,Urine Negative (Negative); Blood,Urine Negative (Negative); Color,Urine Yellow; Glucose,Urine (UA) Negative (Negative); Ketones,Urine Negative (Negative); Leukocyte Esterase,Urine Negative (Negative); Nitrite,Urine Negative (Negative); Protein,Urine Negative (Negative); Specific Gravity,Urine 1.011 (1.001-1.035); Urobilinogen,Urine <2.0 mg/dL (<2.0)
--- NOTE | 2018-06-22 13:08 | US ---
EXAMINATION TYPE: US OB >= 14 wk fetus DATE OF EXAM: 06/22/2018 COMPARISON: None CLINICAL HISTORY: Pain. cramping x 1 day, no bleeding, A3 EXAM PERFORMED: OBTA EXAM MEASUREMENTS: GESTATIONAL AGE / DATING Physician Established: (17 weeks/4 days) EDC: 11/26/2018 Dates by LMP: LMP unknown Dates by First Scan: (17 weeks/4 days) EDC: 11/26/2018 Dates by Current Scan for: (17 weeks/4 days) EDC: 11/26/2018 SURVEY IUP: Single PLACENTA: Anterior PREVIA: No Previa DIANNA: 13.9 cm Normal CERVICAL LENGTH (transabdominal: norm > 3.0cm): 3.1 cm BIOMETRY PRESENTATION: Breech LIE: Longitudinal BPD: 3.8 cm 17 weeks / 4 days HC: 14.4 cm 17 weeks / 5 days AC: 12.5 cm 18 weeks / 1 days FL: 2.5 cm 17 weeks / 3 days ESTIMATED WEIGHT IN GRAMS: 208 grams ESTIMATED WEIGHT IN LBS/OZ: 0 lbs. 7 oz. WEIGHT PERCENTAGE BASED ON ESTABLISHED DATES: 56.3% HC/AC: 1.1 Normal FL/AC: 19.6 Normal HEART RATE: 143 bpm RHYTHM: Normal Patient began to have pain during exam and a possible focal myometrial contraction was seen. 4.8cm hypoechoic bulky area noted on anterior uterus at time of pain. When pain subsided 4 mins later, a re scan of area showed improvement and eventual resolution of bulky appearance. IMPRESSION: There appears to be a focal myometrial contraction as a hypoechoic retroplacental region is seen at t he patient's stated time of pain however when scanned at the same location 4 minutes later the abnorm ality did not persist. Therefore this makes retroplacental hematoma unlikely. Single live intrauterin e is identified with a sonographic age of 17 weeks and 4 days, concordant with menstrual ag e.
[2018-06-22 13:50] VITALS: BP 115/87; PULSE 87; RESP 18; TEMP 98.4
== END 2018-06-22 13:50 | disposition home or self-care (01) ==
LOC: EC 11:13
DX: O99.89 Other specified diseases and conditions complicating pregnancy, childbirth and the puerperium (principal); R10.2 Pelvic and perineal pain; O26.892 Other specified pregnancy related conditions, second trimester; R11.0 Nausea; O99.332 Smoking (tobacco) complicating pregnancy, second trimester; F17.200 Nicotine dependence, unspecified, uncomplicated; Z98.890 Other specified postprocedural states; Z3A.17 17 weeks gestation of pregnancy; Z80.49 Family history of malignant neoplasm of other genital organs
CPT/HCPCS: 36415; 76805; 80048; 81003; 81025; 85025; 85610; 86850; 86900; 86901; 99284

== ENCOUNTER 2018-11-07 16:25 | Outpatient (CLI) | payer OTHER ==
[2018-11-07] MEDS ORDERED: LACTATED RINGERS 1,000 ML IV SCH (17:00)
[2018-11-07 17:21] LABS: Appearance,Urine Clear (Clear); Bilirubin,Urine Negative (Negative); Blood,Urine Negative (Negative); Color,Urine Light Yellow; Glucose,Urine (UA) Negative (Negative); Ketones,Urine Negative (Negative); Leukocyte Esterase,Urine Moderate (Negative); Nitrite,Urine Negative (Negative); PH, Urine 7.5 (5.0-8.0); Protein,Urine Negative (Negative); Specific Gravity,Urine 1.004 (1.001-1.035); Squamous Epithelial Cell,Urine 1 /hpf (0-4); Urobilinogen,Urine <2.0 mg/dL (<2.0); WBC,Urine 1 /hpf (0-5)
[2018-11-07 17:50] VITALS: BP 116/70; PULSE 123; RESP 16; TEMP 97.4
--- NOTE | 2018-11-14 08:32 | P.MSEPDOC ---
Presenting Problems - Arrival Data Date of Arrival on Unit: 11/07/18 Time of Arrival on Unit: 16:25 Mode of Transport: Ambulatory - Complaint Comment: pressure Medical History - Information : 8 Para: 4 Term: 4 : 0 Abortions: Spontaneous or Elective: 2 Number of Living Children: 4 - Gestational Age Gestational Age by WILLIAM (wks/days): 37 Weeks and 2 Days - History Complications: Smoker Review of Systems - Review of Systems Constitutional: No problems Breast: No problems ENT: No problems Cardiovascular: No problems Respiratory: No problems Gastrointestinal: No problems Genitourinary: No problems Musculoskeletal: No problems Neurological: No problems Skin: No problems Vital Signs - Temperature Temperature: 97.4 F Temperature Source: Temporal Artery Scan - Pulse Right Brachial Pulse Rate: 123 Pulse Assessment Method: Automatic Cuff - Respirations Respiratory Rate: 16 Oxygen Delivery Method: Room Air O2 Sat by Pulse Oximetry: 99 - Blood Pressure Right Arm Blood Pressure: 116/70 Blood Pressure Mean: 85 Blood Pressure Source: Automatic Cuff Medical Screen Scoring (Pre) - Cervical Exam Dilation: 1-3 cm = 1 Membranes: Intact - Uterine Contractions Frequency: > or = 36 weeks =2 - Maternal Vital Signs Maternal Temperature: N/A Maternal Blood Pressure: N/A Signs of Preeclampsia: N/A Maternal Respirations: N/A - Maternal Trauma Maternal Trauma: N/A - Assessment - Baby A Baseline FHR: 135 Heart Rate - NICHD Category: Category I (Normal) = 0 NST: Reactive Position: N/A Station: N/A - Total Score - Baby A Total Score - Baby A: 3 - Total Score - Baby B Total Score - Baby B: 3 - Total Score - Baby C Total Score - Baby C: 3 - Level of Risk - Baby A Level of Risk - Baby A: Low (0-5) - Level of Risk - Baby B Level of Risk - Baby B: Low (0-5) - Level of Risk - Baby C Level of Risk - Baby C: Low (0-5) Physician Notification (Pre) - Physician Notified Physician Notified Date: 11/07/18 Physician Notified Time: 18:41 Physician/Practitioner Notifed:: Dr. Delgado Spoke With: Dr. Delgado New Order Received: Yes - Notification Comment Comment: Dr. Delgado given update on pt in tr. Vag exam of 2/thick/-3. Orders recieved to d/c pt to home. To instruct pt on comfort measures and symptoms worsening. Disposition - Disposition OB Disposition: Discharge to home Discharge Date: 11/07/18 Discharge Time: 18:55 I agree with the RN Medical Screening Exam: Yes Risk & Benefit of care provided described in d/c instruction: Yes Diagnosis: FALSE LABOR BEFORE 37 COMPLETED WEEKS OF GEST, THIRD TRI
== END 2018-11-07 18:55 | disposition home or self-care (01) ==
LOC: FBPOP 16:25
PROVIDERS: ATTEND Obstetrics & Gynecology Obstetrics
DX: O47.03 False labor before 37 completed weeks of gestation, third trimester (principal); Z3A.37 37 weeks gestation of pregnancy
CPT/HCPCS: 59025; 96360; 81001; G0463; 96361; 99214

== ENCOUNTER 2018-11-18 21:55 | Inpatient (IN) | payer OTHER ==
[2018-11-18] MEDS ORDERED: CITRIC ACID-SODIUM CITRATE 15 ML CUP PO ONE (22:25)
[2018-11-18 22:39] VITALS: BMI 23.2
[2018-11-18 22:54] LABS: Anisocytosis Slight; Basophils % (A) 0 %; Eosinophils # (A) 0.1 k/uL (0-0.7); Eosinophils % (A) 1 %; HCT 31.7 % (34.0-46.0); HGB 10.3 gm/dL (11.4-16.0); Hypochromasia Moderate; Lymphocytes # (A) 1.8 k/uL (1.0-4.8); Lymphocytes % (A) 17 %; MCH 24.2 pg (25.0-35.0); MCHC 32.4 g/dL (31.0-37.0); MCV 74.7 fL (80.0-100.0); Mean Platelet Volume 9.9; Microcytosis Slight; Monocytes # (A) 0.5 k/uL (0-1.0); Monocytes % (A) 4 %; Neutrophils # (A) 8.4 k/uL (1.3-7.7); Neutrophils % (A) 77 %; Platelet Count 213 k/uL (150-450); Poikilocytosis Moderate; RBC 4.24 m/uL (3.80-5.40); RDW 16.1 % (11.5-15.5)
[2018-11-18] MEDS ORDERED: LACTATED RINGERS 1,000 ML BAG IV ONE (22:57)
[2018-11-18] MEDS ORDERED: OXYTOCIN 10 UNIT/ML 1 ML VIAL ONE (22:57)
[2018-11-18] MEDS ORDERED: ONDANSETRON 4 MG/2 ML VIAL ONE (22:57)
[2018-11-18] MEDS ORDERED: MORPHINE SULFATE (PF) 0.3 MG/0.3 ML SYR ONE (22:57)
[2018-11-18] MEDS ORDERED: ACETAMINOPHEN IV (For NPO) 1,000 MG in EMPTY BAG 1 BAG IVPB ONE (23:37)
[2018-11-18] MEDS ORDERED: METOCLOPRAMIDE 5 MG/ML 2 ML VIAL IVP PRN (23:37)
[2018-11-18] MEDS ORDERED: ZOLPIDEM 5 MG TAB PO PRN (23:37)
[2018-11-18] MEDS ORDERED: diphenhydrAMINE 25 MG CAP PO PRN (23:37)
[2018-11-18] MEDS ORDERED: ONDANSETRON 4 MG/2 ML VIAL IVP PRN (23:37)
[2018-11-18] MEDS ORDERED: diphenhydrAMINE 50 MG CAP PO PRN (23:37)
[2018-11-18] MEDS ORDERED: ACETAMINOPHEN TAB 325 MG TAB PO PRN (23:37)
[2018-11-18] MEDS ORDERED: NALOXONE 0.4 MG/ML 1 ML VIAL IV PRN (23:37)
[2018-11-18] MEDS ORDERED: diphenhydrAMINE 50 MG/ML 1 ML VIAL IVP PRN ×2 (23:37)
[2018-11-18] MEDS ORDERED: IBUPROFEN IV 800 MG in SODIUM CHLORIDE 0.9% 250 ML IV ONE (23:39)
--- NOTE | 2018-11-18 23:44 | P.HPOB ---
History of Present Illness H&P Date: 11/18/18 Chief Complaint: IUP at 38-6/7 weeks, spontaneous rupture of membranes, history of This is a 28-year-old 8 para 4034 at 38-6/7 weeks that presented to labor and delivery with complaints of spontaneous rupture of membranes. Patient states she ruptured clear fluid proximal labor after now her prior presentation of the hospital. She notes good movement she denies vaginal bleeding. She states she is having irregular contractions. She has been receiving routine care with Dr. Ybarra. Next On blood work she has a blood type of O-, rubella immune, hepatitis B surface antigen negative, HIV negative, RPR nonreactive, GBS negative. Review of Systems Constitutional: Denies chills, Denies fatigue, Denies fever Ears, nose, mouth and throat: Denies headache Cardiovascular: Denies leg edema Gastrointestinal: Denies constipation, Denies diarrhea, Denies nausea, Denies vomiting Genitourinary: Reports Past Medical History Past Medical History: No Reported History Additional Past Medical History / Comment(s): low iron History of Any Multi-Drug Resistant Organisms: None Reported Past Surgical History: Section Past Anesthesia/Blood Transfusion Reactions: Postoperative Nausea & Vomiting (PONV) Past Psychological History: Anxiety Smoking Status: Current every day smoker Past Alcohol Use History: Occasional Past Drug Use History: None Reported - Past Family History Father History Unknown: Yes Mother Family Medical History: Cancer Additional Family Medical History / Comment(s): Cervical cancer Medications and Allergies Home Medications Medication Instructions Recorded Confirmed Type Calcium Carbonate [Tums] 1 tab PO Q4H PRN 11/15/18 11/18/18 History Allergies Allergy/AdvReac Type Severity Reaction Status Date / Time No Known Allergies Allergy Verified 11/18/18 22:15 Exam Osteopathic Statement: *. No significant issues noted on an osteopathic structural exam other than those noted in the History and Physical/Consult. 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 Results Result Diagrams: 11/18/18 22:30 Abnormal Lab Results - Last 24 Hours (Table) 11/18/18 Range/Units 22:30 WBC 11.0 H (3.8-10.6) k/uL Hgb 10.3 L (11.4-16.0) gm/dL Hct 31.7 L (34.0-46.0) % MCV 74.7 L (80.0-100.0) fL MCH 24.2 L (25.0-35.0) pg RDW 16.1 H (11.5-15.5) % Neutrophils # 8.4 H (1.3-7.7) k/uL Assessment and Plan (1) Term Current Visit: Yes Status: Acute Code(s): Z34.90 - ENCNTR FOR SUPRVSN OF NORMAL , UNSP, UNSP TRIMESTER SNOMED Code(s): 35843241 (2) Family planning Current Visit: Yes Status: Acute Code(s): Z30.09 - ENCOUNTER FOR OT GENERAL CNSL AND ADVICE ON CONTRACEPTION SNOMED Code(s): 991812756 (3) SROM (spontaneous rupture of membranes) Current Visit: Yes Status: Acute Code(s): CHR6805 - SNOMED Code(s): 446124282 (4) Previous section Current Visit: No Status: Acute Code(s): Z98.89 - OTHER SPECIFIED POSTP ROCEDURAL STATES * DO NOT USE * SNOMED Code(s): 756148532 Plan: Plan repeat with Filshie clips. Patient is counseled on tubal ligat ion, risk and failure rates are discussed patient wishes to proceed.
[2018-11-18] MEDS ORDERED: OXYTOCIN 20 UNITS/1000 ML NS 1,000 ML IV SCH (23:45)
--- NOTE | 2018-11-18 23:47 | P.OP ---
Date of Procedure: 11/18/18 Preoperative Diagnosis: IUP at 38 and 6/sevenths weeks, history of 2, family status complete. Postoperative Diagnosis: Same Procedure(s) Performed: Repeat with tubal ligation Anesthesia: spinal Surgeon: Zaina Delgado Motor Coach Supervisor #1: Ramírez Hayes Estimated Blood Loss (ml): 300 IV fluids (ml): 800 Urine output (ml): 50 Pathology: none sent Condition: stable Disposition: PACU Indications for Procedure: History of 2 desires repeat with tubal ligation. Operative Findings: Normal uterus tubes and ovaries were appreciated, patient delivered a viable male at 2313, weight of 7 lbs. 7 oz. with Apgars of 9 and 9 at one and 5 minutes respectively. Description of Procedure: The patient was prepped and draped in the usual fashion after spinal anesthesia was administered by the anesthesia department. A Pfannenstiel incision was made and extended of the abdominal cavity without difficulty. The bladder peritoneum was elevated and incised and reflected distally. A 2 cm incision was made in the transverse plane of the lower uterine segment to enter the uterus at which time clear fluid was noted. The incision was extended in both directions using blunt dissection. The head was encountered within the field and delivered up and through the incision where the nose and mouth were thoroughly suctioned. Remainder of the was delivered onto the surgical field where the cord was doubly clamped, cut, and the infant was passed for resuscitative measures with weight and Apgars as noted above. A segment of cord was then doubly clamped, cut, and set aside should cord gases become necessary. The placenta was delivered manually, intact, and was grossly normal with a grossly normal three-vessel cord. The uterus was exteriorized and the interior cavity of the uterus swept of any remaining placental and membranous fragments with a laparotomy sponge. The margins of the incision were grasped with Elena clamps and the incision closed in 2 layers. First layer was a running locking layer of 0 Vicryl from margin to margin, and hemostasis was appreciated.. Any small points of bleeding were then made hemostatic with the Bovie. Once hemostasis was achieved, the posterior cul-de-sac was suctioned with a guard and the uterine and ovarian findings are as noted above. The uterus was replaced within the abdominal cavity and the gutters swept of any remaining blood fluid or clot. The incision was again reexamined and hemostasis was noted to be excellent. Any small point of bleeding were made hemostatic with the Bovie. Once hemostasis was achieved the parietal peritoneum was loosely reapproximated. The layer of muscles were examined and made hemostatic with the Bovie. Attention was then turned to the fascia which was closed with 2 running stitches of 0 Vicryl proceeding from the lateral margins to the midpoint. The subcutaneous tissues were irrigated, made hemostatic with the Bovie. The skin was reapproximated with regular for Vicryl. Estimated blood loss for the case was approximately 300 mL. All sponge instrument and needle counts are correct. There were no complications. The patient tolerated the procedure well and proceeded to the recovery room in stable condition. Both mother and are resting comfortably in recovery.
[2018-11-18] MEDS: LACTATED RINGERS 1,000 ML IV SCH (23:54)
[2018-11-19 01:23] LABS: Basophils % (A) 0 %; Eosinophils # (A) 0.1 k/uL (0-0.7); Eosinophils % (A) 1 %; HCT 30.6 % (34.0-46.0); HGB 9.5 gm/dL (11.4-16.0); Hypochromasia Marked; Lymphocytes # (A) 1.3 k/uL (1.0-4.8); Lymphocytes % (A) 13 %; MCH 23.8 pg (25.0-35.0); MCHC 31.1 g/dL (31.0-37.0); MCV 76.3 fL (80.0-100.0); Mean Platelet Volume 8.8; Microcytosis Slight; Monocytes # (A) 0.3 k/uL (0-1.0); Monocytes % (A) 3 %; Neutrophils # (A) 8.5 k/uL (1.3-7.7); Neutrophils % (A) 83 %; Platelet Count 193 k/uL (150-450); Poikilocytosis Moderate; RBC 4.01 m/uL (3.80-5.40); RDW 15.8 % (11.5-15.5); WBC 10.3 k/uL (3.8-10.6)
[2018-11-19] MEDS: LACTATED RINGERS 1,000 ML IV SCH ×4 (01:47→19:28)
[2018-11-19] MEDS: SIMETHICONE 80 MG CHEWABLE PO PRN ×2 (03:56→19:30)
--- NOTE | 2018-11-19 08:30 | P.PN ---
Progress Note - Text Progress Note Date: 11/19/18 Patient is without complaints. Denies weakness or paresthesia. Denies headache. Pruritis controlled. Pain treated. A/P POD#1 s/p with spinal duramorph - doing well
--- NOTE | 2018-11-19 10:09 | P.PNOBGPC ---
Subjective - Subjective Principal diagnosis: POD 1 RCS with TL Interval history: Patient did well overnight. She is feeling well this morning. She states her pain is controlled with oral pain medication, she is ambulating and awaiting a spontaneous void status post Jay removal this morning. She states her lochia is minimal. She is tolerating clear liquids without nausea or vomiting. Patient reports: Reports appetite normal, Reports pain well controlled, Reports ambulating normally : doing well Objective - Vital Signs Latest vital signs: Vital Signs Temp Pulse Resp BP Pulse Ox 11/19/18 08:00 97.6 F 65 16 106/67 98 11/19/18 04:00 97.7 F 77 16 110/70 99 11/19/18 01:48 61 18 11/19/18 01:41 97.4 F L 53 L 18 124/75 100 11/19/18 01:13 97.2 F L 70 18 95/50 100 11/19/18 00:41 97.2 F L 72 18 108/60 100 11/19/18 00:28 97.5 F L 74 18 106/62 100 11/19/18 00:11 97.5 F L 79 18 108/59 100 11/18/18 23:56 90 18 117/58 99 11/18/18 23:43 96.9 F L 85 18 117/56 98 11/18/18 22:34 97.4 F L 112 H 18 128/76 100 11/18/18 22:24 97.4 F L 112 H 20 128/76 100 Intake and Output 11/18/18 11/19/18 11/19/18 22:59 06:59 14:59 Output Total 600 Balance -600 Output: Urine 600 Other: Voiding Method Indwelling Catheter # Emeses 1 Weight 57.606 kg - Exam Extremities: Present: normal Abdomen: Present: normal appearance, soft Incision: Present: normal, dry, intact Uterus: Present: normal, firm - Labs Labs: Abnormal Lab Results - Last 24 Hours (Table) 11/18/18 11/19/18 Range/Units 22:30 01:02 WBC 11.0 H (3.8-10.6) k/uL Hgb 10.3 L 9.5 L (11.4-16.0) gm/dL Hct 31.7 L 30.6 L (34.0-46.0) % MCV 74.7 L 76.3 L (80.0-100.0) fL MCH 24.2 L 23.8 L (25.0-35.0) pg RDW 16.1 H 15.8 H (11.5-15.5) % Neutrophils # 8.4 H 8.5 H (1.3-7.7) k/uL Assessment and Plan (1) Term Current Visit: Yes Status: Acute Code(s): Z34.90 - ENCNTR FOR SUPRVSN OF NORMAL , UNSP, UNSP TRIMESTER SNOMED Code(s): 27238451 (2) Family planning Current Visit: Yes Status: Acute Code(s): Z30.09 - ENCOUNTER FOR OTH GENERAL CNSL AND ADVICE ON CONTRACEPTION SNOMED Code(s): 182619994 (3) SROM (spontaneous rupture of membranes) Current Visit: Yes Status: Acute Code(s): MQP6880 - SNOMED Code(s): 723856029 (4) Previous section Current Visit: No Status: Acute Code(s): Z98.89 - OTHER SPECIFIED POSTPROCEDURAL STATES * DO NOT USE * SNOMED Code(s): 357654974 (5) S/P section Current Visit: No Status: Acute Code(s): Z98.89 - OTHER SPECIFIED POSTPROCEDURAL STATES * DO NOT USE * SNOMED Code(s): 733885102 Plan: Patient is doing well postoperatively will plan to continue routine postoperative care.
[2018-11-19] MEDS: IBUPROFEN 600 MG TAB PO PRN ×2 (15:19→21:36)
[2018-11-19] MEDS: HYDROcodone/APAP 5-325MG 1 EACH TAB PO PRN (18:24)
[2018-11-19] MEDS: SENNOSIDES-DOCUSATE SODIUM 1 EACH TAB PO SCH ×2 (19:28→19:30)
[2018-11-20] MEDS: HYDROcodone/APAP 5-325MG 1 EACH TAB PO PRN ×2 (03:51→11:25)
[2018-11-20] MEDS: IBUPROFEN 600 MG TAB PO PRN (05:13)
[2018-11-20] MEDS: SENNOSIDES-DOCUSATE SODIUM 1 EACH TAB PO SCH (08:14)
[2018-11-20] MEDS: SIMETHICONE 80 MG CHEWABLE PO PRN (08:14)
[2018-11-20 09:34] VITALS: BP 108/64; PULSE 83; RESP 16; TEMP 97.5
--- NOTE | 2018-11-20 11:39 | P.DS ---
Providers Date of admission: 11/18/18 22:19 Expected date of discharge: 11/20/18 Attending physician: Yasmani Arenas Primary care physician: Stated None - Discharge Diagnosis(es) (1) Term Current Visit: Yes Status: Acute (2) Family planning Current Visit: Yes Status: Acute (3) SROM (spontaneous rupture of membranes) Current Visit: Yes Status: Acute (4) Previous section Current Visit: No Status: Acute (5) S/P section Current Visit: No Status: Acute Hospital Course: This is a pleasant 28-year-old 8 para 4034 that presented to labor and delivery at 38-6/7 weeks with complaints of spontaneous rupture of membranes. Patient was scheduled for a repeat this coming Wednesday. Patient noted irregular contractions at that time. For further details on the patient please see the complete history and physical. Patient underwent a repeat repeat C- section with tubal ligation for further details on the please see the operative report. Patient has done well postoperatively she is ambulating and voiding without difficulty on this postoperative day #2. She states her pain is well-controlled with the oral pain medication she denies concerns and wishes discharge home. Patient Condition at Discharge: Good Plan - Discharge Summary New Discharge Prescriptions: No Action Calcium Carbonate [Tums] 1 tab PO Q4H PRN PRN Reason: reflux Discharge Medication List Calcium Carbonate [Tums] 1 tab PO Q4H PRN 11/15/18 [History] Follow up Appointment(s)/Referral(s): Yasmani Arenas MD [STAFF PHYSICIAN] - 2 Weeks Patient Instructions/Handouts: (DC), (GEN)
== END 2018-11-20 12:35 | disposition home or self-care (01) | DRG 785 ==
LOC: FBPOP 21:55 → 4FBP 22:19
PROVIDERS: ADMIT Obstetrics & Gynecology Obstetrics; ATTEND Obstetrics & Gynecology
PROC: 10D00Z1 Extraction of Products of Conception, Low, Open Approach (ICD-10-PCS; principal; 2018-11-18 23:00)
PROC: 0UB70ZZ Excision of Bilateral Fallopian Tubes, Open Approach (ICD-10-PCS; principal; 2018-11-18 23:00)
DX: O34.211 Maternal care for low transverse scar from previous cesarean delivery (principal); O99.334 Smoking (tobacco) complicating childbirth; F17.200 Nicotine dependence, unspecified, uncomplicated; Z30.2 Encounter for sterilization; Z37.0 Single live birth; Z3A.38 38 weeks gestation of pregnancy; Z80.49 Family history of malignant neoplasm of other genital organs; L29.9 Pruritus, unspecified
CPT/HCPCS: 59025; 84112; 85025; 86850; 86870; 86880; 86900; 86901; 99213